=== PATIENT | male | born 1965 | race Caucasian/White ===

== ENCOUNTER 2019-06-18 06:05 | Observation (INO) ==
--- NOTE | 2019-06-18 06:45 | PROVIDER DOCUMENTATION ---
HPI-General Adult - General Chief Complaint: Nausea/Vomiting Stated Complaint: dizzy, nausea Time Seen by Provider: 06/18/19 06:16 Source: patient Allergies/Adverse Reactions: Patient Allergies Allergy/AdvReac Type Severity Reaction Status Date / Time No Known Allergies Allergy Verified 09/15/17 12:58 Home Medications: Home Medication List Medication Instructions Recorded Confirmed Last Taken Type D-Methorphan/P-Epd/Bpm [Bromfed Dm 5 ml PO Q4H PRN #120 ml 12/09/18 Unknown Rx Liquid] Prednisone 20 mg PO DIRECTED #18 tab 12/09/18 Unknown Rx - History of Present Illness -Gen Adult Nature of Presenting Problems: Presents to the with complaints of dizziness and nausea. Patient states that he woke up this morning with some dizziness and nausea and abdominal pain. He went to work at [employer] and stated that he kept having to sit down to keep himself from falling. He states that this happened many times. He states that he was very wobbly when he tried to walk. He states that he thinks he may have lost consciousness a few times. His is at bedside and states that he has a history of gastritis and when this has happened to him in the past he was drinking too many cokes and was dehydrated. He states he feels like his abdomen is cramping. He has not tried anything at home. He denies any fevers or chills. Review of Systems - Adult - REVIEW OF SYSTEMS - ADULT ROS:: vague historian Constitutional: reports: see HPI Eyes: reports: no symptoms reported Ears, Nose, Mouth & Throat: reports: no symptoms reported Cardiovascular: reports: no symptoms reported Respiratory: reports: no symptoms reported Gastrointestinal: reports: abdominal pain, nausea, vomiting Genitourinary: reports: no symptoms reported Musculoskeletal: reports: no symptoms reported Integumentary: reports: no symptoms reported Neurological: reports: see HPI, dizziness/vertigo Psychiatric: reports: no symptoms reported Endocrine: reports: no symptoms reported Hematologic/Lymphatic: reports: no symptoms reported Allergic/Immunologic: reports: no symptoms reported All Other Systems: Reviewed and Negative Past History - Adult - PAST MEDICAL HISTORY-ADULT Review of Records: reports: Old Records Reviewed Major Childhood Illnesses: reports: denies history Cardiovascular: reports: denies history Respiratory: reports: denies history Gastrointestinal: reports: GERD Obstetrical/Gynecological: reports: denies history Genitourinary: reports: denies history Musculoskeletal: reports: denies history Neurological: reports: denies history Psychiatric: reports: denies history Endocrine/Immune: reports: denies history Other Conditions: reports: denies history - PRIOR SURGERIES/PROCEDURES Surgical/Procedure History: reports: hernia repair, bowel surgery (hernia repair) - PRIOR HOSPITALIZATIONS Prior Hospitalizations: reports: none, for other non-related - IMMUNIZATION STATUS Childhood Immunizations: UTD, See Nurse Assessment Flu Vaccine: See Nurse Assessment - FAMILY HISTORY Family History: CAD over 55 yo, lung disease Physical Exam-General - PHYSICAL EXAM-ADULT Initial Vital Signs Reviewed: Yes - CONSTITUTIONAL General Appearance: appears well, alert, no apparent distress, other (fatigued) - EYES Eyes: PERRL/EOMI - HEAD, EARS, NOSE, MOUTH & THROAT HENMT: normocephalic/atraumatic - NECK Neck: non-tender, full range of motion, supple, normal inspection - RESPIRATORY Respiratory: chest non-tender, lungs clear, normal breath sounds, no respiratory distress, no accessory muscle use - CARDIOVASCULAR Cardiovascular: normal peripheral pulses, no murmur, bradycardia - GASTROINTESTINAL (ABDOMEN) Abdominal Exam: normal bowel sounds, soft, tenderness (RLQ) - MUSCULOSKELETAL Back Exam: normal inspection Extremity: normal range of motion, non-tender, normal gait - SKIN Integumentary: normal color, warm/dry - NEUROLOGIC Neurologic: grossly normal, no motor/sensory deficits - PSYCHIATRIC Psych/Mental Status: normal mood/affect, oriented x 3 Progress - PLAN OF CARE/RESULTS Progress/Plan/Lab Results: Vital Signs - 8 hr 06/18/19 06:15 Temperature 97.6 F Pulse Rate 56 L Respiratory Rate 18 Blood Pressure 136/89 O2 Sat by Pulse Oximetry 97 Result Diagrams: 06/18/19 06:30 06/18/19 06:30 - REASSESSMENT Reassessment #1 Time Reassessed: 09:15 Status: improving (CT scan suggestive of interval development of infarct from 2015. d/w pt. Will admit for further w/u. Pt agreeable with the plan.) - EKG 2 Time of EKG reading by physician:: 06:27 EKG Read and Signed by:: My Mejia EKG Interpretation (*Must complete 3 of following elements*): Normal Rate: 52 Rhythm: Bradycardia [place]: normal QRS: normal [place] Interval: normal ST Wave: normal Prior EKG Comparison: unchanged from prior (2017) - CONSULTS/PCP/HOSPITALIST Notification #1 *Consult/PCP/Hospitalist*: d/w Dr Dominguez Time Discussed: 09:25 Consult Disposition: Admit (for observation.) - CHANGE OF SHIFT REPORT (ED Provider) 1 Report Given and Care Transferred to:: Dr Crump Time of Transfer: 07:00 Items Pending: Labs, CT/MRI Results Departure - Departure Date of Disposition Decision: 06/18/19 Time of Disposition Decision: 09:27 DIAGNOSIS: Dizziness, Abnormal CT of the head Disposition: ADMITTED INPATIENT Certified Medical Emergency: Emergent Condition: Stable Referrals and Follow-Ups: None,PCP [Primary Care Provider] - - Critical Care Note This patient required my direct & personal management of CC.: No Attestation - Physician/ BRITNEY Attestation Patient care was provided by Advanced Practice Provider:: No The physician spent face to face time with patient:: Yes Advanced Practice Provider documentation review:: Supervising physician onsite and consulted in the evaluation and care of this patient. The physician did have a face to face encounter with the patient.
[2019-06-18] MEDS ORDERED: TORADOL IV ONE (06:48)
[2019-06-18] MEDS ORDERED: NS 1,000 ML IV ONE (06:48)
[2019-06-18] MEDS ORDERED: ZOFRAN IV ONE (06:48)
[2019-06-18 07:03] LABS: BASO# 0.04 X1000 (0.0-0.2); BASO% 0.6 % (0.0-0.8); EOS# 0.21 X1000 (0.0-0.7); EOS% 3.3 % (0.0-10.0); HEMATOCRIT 40.6 % (42.0-52.0); HEMOGLOBIN 13.5 g/dL (14.0-18.0); LYMPH# 1.83 X1000 (1.2-3.4); LYMPH% 28.6 % (20.5-51.1); MCHC 33.3 g/dL (33-37); MCV 93.3 FL (81-99); MONO# 0.44 X1000 (0.11-0.59); MONO% 6.9 % (1.7-9.3); MPV 11.2 FL (7.4-10.4); NEUT# 3.88 X1000 (1.4-6.5); NEUT% 60.6 % (42.2-75.2); PLT 171 X1000 (130-400); RBC 4.35 XMIL (4.7-6.1); RDW 12.7 % (11.5-14.5)
--- NOTE | 2019-06-18 07:21 | EKG Report ---
Test Performed on : 06/18/2019 06:23:59 AM Test Reason : ER Blood Pressure : / mmHG Vent. Rate : 052 BPM Atrial Rate : 052 BPM P-R Int : 136 ms QRS Dur : 076 ms QT Int : 384 ms P-R-T Axes : 062 066 064 degrees QTc Int : 357 ms Sinus bradycardia. Possible Left atrial enlargement Borderline ECG When compared with ECG of 15-SEP-2017 14:44, QT has shortened Unconfirmed Result
[2019-06-18 07:40] LABS: AGAP 11; ALBUMIN 4.6 g/dL (3.5-5.0); ALKALINE PHOSPHATASE 113 U/L (32-122); BUN 15 mg/dL (8-22); CALCIUM 9.3 mg/dL (8.8-10.2); CHLORIDE 103 mmol/L (98-107); COSMO 275; CREATININE 0.8 mg/dL (0.7-1.2); ESTIMATED GFR > 60; GLUCOSE 107 mg/dL (70-104); GOT 24 U/L (10-34); GPT 20 U/L (10-44); LIPASE 9 U/L (13-60); POTASSIUM 4.3 mmol/L (3.5-5.1); SODIUM 137 mmol/L (136-145); TCO2 23 mmol/L (25-35); TOTAL PROTEIN 6.8 g/dL (6.3-8.3)
[2019-06-18 07:41] LABS: BILIRUBIN URINE NEGATIVE (NEGATIVE); BLOOD URINE NEGATIVE (NEGATIVE); CLARITY CLEAR (CLEAR); COLOR YELLOW; GLUCOSE URINE NEGATIVE (NEGATIVE); KETONE URINE NEGATIVE (NEGATIVE); LEUKOCYTES URINE NEGATIVE (NEGATIVE); NITRITE URINE NEGATIVE (NEGATIVE); PROTEIN URINE NEGATIVE (NEGATIVE); UR AMPHETAMINES QUAL NONE DETECTED (NONE DETECT); UR BARBITUATES QUAL NONE DETECTED (NONE DETECT); UR BENZODIAZEPIN QUAL NONE DETECTED (NONE DETECT); UR CANNABINOIDS QUAL NONE DETECTED (NONE DETECT); UR COCAINE QUAL NONE DETECTED (NONE DETECT); UR METHADONE QUAL NONE DETECTED (NONE DETECT); UR METHAMPHETAMINE QUAL NONE DETECTED (NONE DETECT); UR OPIATES QUAL NONE DETECTED (NONE DETECT); UR OXYCODONE QUAL NONE DETECTED (NONE DETECT); UR PCP QUAL NONE DETECTED (NONE DETECT); UR PROPOXYPHENE QUAL NONE DETECTED (NONE DETECT); UR TCA QUAL NONE DETECTED (NONE DETECT); UROBILINOGEN URINE NORMAL
[2019-06-18 07:44] LABS: URINE BACTERIA 1+ /HFP; URINE EPITHELIAL CELLS <10 /HPF (<10); URINE SOURCE CLEAN CATCH
--- NOTE | 2019-06-18 08:42 | Diag Imaging Result Doc PS360 ---
EXAM: CT HEAD W/O CONTRAST - 06/18/2019 HISTORY: dizziness, syncope TECHNIQUE: CT head without contrast COMPARISON: 09/13/2015 FINDINGS: There is encephalomalacia at the left cerebellar hemisphere, most prominent posteriorly and inferiorly, which is compatible with interval infarct. The age of the left cerebellar infarct is otherwise nonspecific. There is no other infarct identified, although acute infarcts may not be immediately visible. There is no evidence of intracranial hemorrhage, mass effect, midline shift, or hydrocephalus. There is no evidence of skull fracture. There is some paranasal sinus disease noted at ethmoid air cells. IMPRESSION: Infarct at left cerebellum which has developed since 09/13/2015, but otherwise is of nonspecific age. Correlation with clinical history is recommended. If any further imaging evaluation is desired, MRI could be considered. No hemorrhage or mass effect. This exam was performed using automated exposure control, adjustment of mA or kV according to patient size, and/or use of iterative reconstruction technique. Electronically signed by Jerman Irizarry 06/18/2019 8:39 AM
--- NOTE | 2019-06-18 08:50 | Diag Imaging Result Doc PS360 ---
EXAM: CT ABD/PELVIS W/IV CONT ONLY - 06/18/2019 HISTORY: RLQ abd pain, nausea TECHNIQUE: CT abdomen/pelvis with intravenous contrast. No oral contrast administered per request of the referring provider. COMPARISON: None. FINDINGS: There are no substantial abnormalities of the liver, spleen, adrenal glands, or pancreas identified. There are no calcified gallstones or pericholecystic inflammation identified. The bilateral kidneys enhance homogeneously. There is no hydronephrosis. There are nonspecific small retroperitoneal and mesenteric lymph nodes. There are no substantially enlarged lymph nodes identified. There is no evidence of bowel obstruction. The appendix is upper normal in size and shows no discrete inflammation. There is mild colonic diverticulosis. There is no evidence of diverticulitis. There is no free air, free fluid, or abscess identified. IMPRESSION: No visible acute abnormality. No bowel obstruction. No discrete appendicitis. Mild colonic diverticulosis. No evidence of diverticulitis. No abscess. No free air. This exam was performed using automated exposure control, adjustment of mA or kV according to patient size, and/or use of iterative reconstruction technique. Electronically signed by Jerman Irizarry 06/18/2019 8:48 AM
[2019-06-18 11:36] LABS: CHOLESTEROL 169 mg/dL (0-200); HDL 47 mg/dL (35-55); LDL 110 mg/dL; TRIGLYCERIDES 60 mg/dL (39-160); VLDL 12 mg/dL
--- NOTE | 2019-06-18 12:49 | Diag Imaging Result Doc PS360 ---
EXAM: MRI BRAIN W/WO CONTRAST 06/18/2019 HISTORY: r/o cva TECHNIQUE: T1 sagittal and axial, post gadolinium T1 axial with coronal reformation, axial T2, FLAIR, DWI and coronal gradient echo. COMMENT: There are no previous MRI studies available for comparison. There is no evidence of restricted diffusion. There is encephalomalacia in the inferior medial portion of the left cerebellar hemisphere which may be due to a previous infarction. There is some motion artifact. There are patchy punctate areas of T2 weighted signal intensity particularly around the frontal horns bilaterally. There is no evidence of bleed or abnormal extra-axial fluid collection and no mass effect is present. No evidence of abnormal gadolinium enhancement is present. IMPRESSION: Chronic ischemic changes including what appears to be an old left posterior inferior cerebellar artery infarct. No evidence of acute disease. Electronically signed by Vadim Sandoval 06/18/2019 12:46 PM
--- NOTE | 2019-06-18 14:08 | Extremity Venous Study ---
EXAM: Carotid Ultrasound - 06/18/2019 HISTORY: dizziness, LE weakness, TIA v CVA TECHNIQUE: Carotid flow studies COMPARISON: None. FINDINGS: There is no substantial atherosclerotic plaquing identified in the right carotid system. Maximum systolic velocity right internal carotid is 76 cm/s, and maximum diastolic velocity is 32 cm/s. The right internal to common carotid systolic velocity ratio is 0.94. The flow velocities and ratio are consistent with 0-39% stenosis at the right internal carotid. The right vertebral arteries antegrade flow. There is no substantial atherosclerotic plaquing identified in the left carotid system. Maximum systolic velocity in the left internal carotid is 59 cm/s, and maximum diastolic velocity is 24 cm/s. The left internal to common carotid systolic velocity ratio is 0.63. The flow velocities and ratio are consistent with 0-39% stenosis at left internal carotid. The left vertebral demonstrates an. IMPRESSION: 0-39% stenosis at right internal carotid. 0-39% stenosis at left internal carotid. Electronically signed by Jerman Irizarry 06/18/2019 2:06 PM
--- NOTE | 2019-06-18 16:39 | ECHO REPORT ---
ORDER DATE: 06/18/2019 ECHOCARDIOGRAPHIC MEASUREMENTS: 1. Interventricular septum 0.9. 2. Left ventricular posterior wall 0.9. 3. Diastolic diameter 4.9. 4. Aorta 3.5 cm. 5. Left atrium 3.6 cm. SUMMARY: 1. Aortic valve leaflets are trileaflet. 2. Pulmonic valve is normal. There is trace pulmonary regurgitation. 3. Tricuspid valve was normal. 4. Mitral valve was normal. There is mild tricuspid regurgitation. Peak velocity across the tricuspid valve was 2.7 m/sec. 5. Pulmonary artery systolic pressure of 35 to 40 mmHg. There is mild mitral regurgitation. Peak velocity across the aortic valve less than 2 m/sec. By Doppler studies, there is no aortic stenosis or regurgitation. 6. Normal left ventricular cavity size. Estimated ejection fraction of 65%. 7. There is no pericardial effusion or obvious intracardiac mass or thrombus seen. cc: MD Blank Aleman CRNP
--- NOTE | 2019-06-18 19:55 | HISTORY AND PHYSICAL ---
CHIEF COMPLAINT: Is dizzy, nausea. HISTORY OF PRESENT ILLNESS: This is a 54-year-old gentleman who presented to the emergency room from his work at [employer]. The patient stated that he woke up this morning nausea and abdominal pain and dizziness.He reported episodes of "being very wobbly when I walk, its like riding a roller coaster and everything is spinning around me." He reported holding on to furniture as well as lean on the wall to walk due to the spinning. He reported sequence of symptoms as nausea and abdominal pain followed by dizziness and weakness. He denied any falling to the ground or any injury. PAST MEDICAL HISTORY: Gastroesophageal reflux disease, gastritis, hypokalemia. PAST SURGICAL HISTORY: Hernia repair and repair of the tendon in his right hand. SOCIAL HISTORY: Smokes about half pack a day. Denies alcohol or illicit drug use. ALLERGIES: No known drug allergies. HOME MEDICATIONS: A list will be obtained by the nursing staff and once verified will review restart as appropriate. REVIEW OF SYSTEMS: Discussed with patient with pertinent positives stated in the HPI. He denied any syncope, any vomiting, any black or bloody vomitus or stools, any diarrhea, constipation, any shortness of breath, cough, fever, chills, chest pain, palpitations, hematuria, dysuria, frequency, urgency. PHYSICAL EXAMINATION: GENERAL: This is a 54-year-old gentleman who is sitting up in the bed in the emergency room in no distress. VITAL SIGNS: Blood pressure is 138/88 with heart rate of 63, respirations 18, temperature 98.2 degrees oral with room air saturations 97-99%. Orthostatic vital signs lying blood pressure is 123/87 with heart rate of 52, sitting blood pressure 126/89 with heart rate of 70, standing blood pressure 128/90 with a heart rate of 81. Eyes, pupils are equal, round, react to light. EOMs are intact. Sclerae are anicteric. Head is normocephalic, atraumatic. Mucous membranes are moist. Neck is supple. Trachea midline. No JVD. CARDIOVASCULAR: Regular rate and rhythm. S1 and S2 appreciated. His calves are nontender bilateral, peripheral pulses palpable x4 extremities. PULMONARY: Breath sounds are clear with no increased work of breathing noted. Chest rises and falls symmetric respiration. Chest wall is nontender to palpation. GASTROINTESTINAL: Abdomen soft, nontender, nondistended. Bowel sounds in all 4 quadrants. : He has no CVA or suprapubic tenderness. SKIN: Is warm and dry. NEUROLOGIC: Forehead is spared. He has no facial droop. Equal nasal flaring. No tongue or uvula deviation. Speech is clear. Equal shoulder shrug. He has no plantar drift. 5/5 muscle strength x4 extremities. [employer] are equal and strong. [id number] bilateral 5/5. Heel, knee to duff 5/5 bilateral. LABS: WBC is 6.4 with hemoglobin 13.5, hematocrit 40.6 and platelets of 171,000. Sodium 137, potassium 4.3, BUN 15, creatinine 0.8 with a glucose of 107. Troponin is negative. Urinalysis is essentially negative. Urine drug screen reveals none detected. CT of the abdomen and pelvis reveals no acute abnormality, no bowel obstruction, no discrete appendicitis. Mild colonic diverticulosis, no evidence of diverticulitis, no abscess, no free air. CT of the head reveals infarct at the left cerebellum which has developed since 2014, otherwise is of nonspecific age, if further imaging evaluation is desired MRI could be considered. No hemorrhage or mass effect. ASSESSMENT AND PLAN: 1. Dizziness. 2. 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 3. Gastroesophageal reflux disease. 4. Nausea. 5. History of gastritis. 6. Abdominal pain. PLAN: The patient will be admitted to the medical-surgical floor. He will be placed on telemetry. MRI of the brain with and without as well as a bilateral carotid Doppler study and echocardiogram. neuro checks, consult physical therapy Prilosec 40 mg daily. CBC and BMP in the morning. Plan was discussed with Dr. Dominguez. Further treatments pending hospital course. Dictated by FELISHA Hogue for Maikol Dominguez MD cc: FELISHA Hogue MD [facility]
[2019-06-18] MEDS: ZOFRAN IV PRN (19:56)
[2019-06-18] MEDS ORDERED: NICODERM PATCH TD PRN (23:09)
[2019-06-18] MEDS: LIPITOR PO SCH (23:54)
[2019-06-18] MEDS: NS 1,000 ML IV SCH (23:55)
[2019-06-19] MEDS: PRILOSEC PO SCH (06:29)
[2019-06-19] MEDS: LOVENOX SUBQ SCH (06:29)
[2019-06-19 07:03] LABS: HEMATOCRIT 42.6 % (42.0-52.0); HEMOGLOBIN 14.1 g/dL (14.0-18.0); MCHC 33.1 g/dL (33-37); MCV 93.6 FL (81-99); RBC 4.55 XMIL (4.7-6.1); RDW 12.8 % (11.5-14.5); WBC 4.9 X1000 (4.8-10.8)
[2019-06-19 07:19] LABS: AGAP 9; CHLORIDE 105 mmol/L (98-107); POTASSIUM 4.4 mmol/L (3.5-5.1); SODIUM 137 mmol/L (136-145); TCO2 23 mmol/L (25-35)
[2019-06-19 07:20] LABS: BUN 11 mg/dL (8-22); CALCIUM 9.1 mg/dL (8.8-10.2); COSMO 273; CREATININE 0.8 mg/dL (0.7-1.2); ESTIMATED GFR > 60; GLUCOSE 100 mg/dL (70-104)
[2019-06-19 07:21] LABS: CHOLESTEROL 173 mg/dL (0-200); HDL 44 mg/dL (35-55); LDL 108 mg/dL; TRIGLYCERIDES 106 mg/dL (39-160); VLDL 21 mg/dL
--- NOTE | 2019-06-19 07:38 | PROGRESS NOTE ---
DATE: 06/19/2019 SUBJECTIVE: Patient has no major complaints. He came in with acute dizziness. No previous history of stroke but he has had acute dizziness issues. His neurological exam was nonfocal. Cranial nerves 2-12 were intact. No pronator drift and no facial asymmetry. The patient will be placed in observation for workup of stroke as he has MRI evidence of cerebellar encephalomalacia. Placed on aspirin. Carotid echo, CT angiogram, and we will continue to monitor. This is a [id number] encounter note with Blank Juárez. cc: Maikol Dominguze MD
--- NOTE | 2019-06-19 08:40 | Diag Imaging Result Doc PS360 ---
EXAM: CT ANGIOGRAM HEAD HISTORY: CVA TECHNIQUE: CT angiogram head with contrast. MIP images obtained. COMPARISON: None. FINDINGS: Normal flow in each distal internal carotid artery. Normal filling of each anterior and middle cerebral artery. No stenosis. No aneurysm. Normal flow in the basilar artery. Normal filling of each posterior cerebral artery. No parenchymal hemorrhage. No epidural or subdural hematoma. No subarachnoid hemorrhage. No mass or midline shift. Old left cerebellar infarct. IMPRESSION: No occlusion, stenosis, or aneurysm identified. This exam was performed using automated exposure control, adjustment of mA or kV according to patient size, and/or use of iterative reconstruction technique. Electronically signed by Alexander Spencer 06/19/2019 8:37 AM
[2019-06-19] MEDS: NS 1,000 ML IV SCH ×2 (10:29→21:00)
[2019-06-19] MEDS: ASPIRIN EC PO SCH (10:30)
[2019-06-19] MEDS: ZOFRAN IV PRN (13:21)
--- NOTE | 2019-06-19 19:48 | PROGRESS NOTE ---
DATE: 06/19/2019 SUBJECTIVE: Patient notes that he is feeling a lot better. He is still having some weakness. He is excited to get physical therapy again today. He does want to go home. His daughter notes that he is a little too weak at the moment. PHYSICAL EXAMINATION: Vital Signs: Temperature 97.8 degrees, pulse 57, respiratory rate 18, BP 110/75. General: Patient is awake, alert. He is very pleasant. He is alert and oriented. HEENT: Normocephalic. Neck: Supple. Cardiovascular: Regular rate. Chest: Clear. Abdomen: Soft. Extremities: Moves all extremities, although with generalized weakness. He has no focal weakness. ASSESSMENT: 1. Dizziness, appears to be improving. 2. Reflux. 3. Nausea. 4. Gastritis. 5. Left cerebellar infarct, that appears chronic in nature. PLAN: His MRI, carotid, and CT angiogram are reported as negative. We are going to continue physical therapy. Hopefully, if he gets stronger, he can discharge home today; otherwise, hopefully tomorrow. We will continue to follow. cc: Dany Cortes MD
[2019-06-19] MEDS: LIPITOR PO SCH (21:00)
[2019-06-20 05:07] VITALS: BP 119/70
[2019-06-20] MEDS: LOVENOX SUBQ SCH (06:08)
[2019-06-20] MEDS: PRILOSEC PO SCH (06:08)
[2019-06-20] MEDS: NS 1,000 ML IV SCH (06:08)
[2019-06-20] MEDS: ASPIRIN EC PO SCH (07:59)
--- NOTE | 2019-06-21 02:18 | DISCHARGE SUMMARY ---
ADMISSION DATE: 06/18/2019 DISCHARGE DATE: 06/20/2019 DIAGNOSES: 1. Dizziness, resolved. 2. Gastroesophageal reflux disease. 3. Left cerebellar infarct that appears to be chronic in nature. 4. Nausea, resolved. 5. Abdominal pain, resolved. 6. History of gastritis. DIAGNOSTICS: 1. 06/18/2019 CT of the abdomen and pelvis with IV contrast revealed no visible acute abnormality. No obstruction. No discrete appendicitis. Mild colonic diverticulosis with no evidence of diverticulitis. No abscess. No free air. 2. CT of the head without contrast revealed infarct at the left cerebellum which has developed since 09/13/2015, but otherwise is of nonspecific age. No hemorrhage or mass effect. 3. MRI of the brain with and without contrast revealed chronic ischemic changes including what appears to be an old left posterior inferior cerebellar artery infarct. No evidence of acute disease. 4. Echocardiogram revealed normal left ventricular cavity size with an estimated ejection fraction of 65%. No pericardial effusion or obvious intracardiac mass or thrombus seen. 5. CTA of the head revealed no occlusion, stenosis or aneurysm identified. 6. Bilateral carotid Doppler study 0 to 39% stenosis at the right and left internal carotid. HOSPITAL COURSE: Mr. Sun presented to the emergency room after having an episode of dizziness as well as nausea and lower extremity weakness. He describes sequence of symptoms as nausea followed by abdominal pain followed by dizziness and weakness. He denied any true syncopal episodes or any injury. He was found to have a left cerebellar infarct which has developed since 2014. MRI revealed no acute processes. Dizziness resolved. His nausea and abdominal pain resolved. He tolerated a healthy heart diet 100%. He was evaluated by Physical Therapy. He ambulated 400 feet with reciprocal gait pattern, upright posture and good doris ambulating. They did not recommend any inpatient rehab nor home physical therapy. DISCHARGE VITAL SIGNS: Blood pressure is 119/70 with a heart rate of 58, respirations 18, temperature is 97.4 degrees with room air saturations 97%. DISCHARGE PHYSICAL EXAMINATION: Cardiovascular: Regular rate and rhythm. S1 and S2 appreciated. He has no lower extremity edema. Calves nontender bilateral with peripheral pulses palpable x4 extremities. Pulmonary: Breath sounds are clear with no increased work of breathing noted. Gastrointestinal: Abdomen is soft, nontender, nondistended with bowel sounds in all 4 quadrants. Genitourinary: No CVA or suprapubic tenderness. Skin: Warm and dry. Neurologic: Forehead is spared. He has no facial droop. Equal nasal flaring. No tongue or uvula deviation. Speech is clear. Equal shoulder shrug. No plantar drift. 5/5 muscle strength x4 extremities. Finger-to- nose bilateral is 3/3. Heel, knee to duff is bilateral 3/3. DISCHARGE MEDICATIONS: Lipitor 40 mg p.o. at bedtime, NicoDerm patch 21 mg daily. FOLLOWUP: Dr. Crump or his primary care physician in the next 7 to 10 days. He has been instructed to call to be seen sooner or return to the ER for recurrence of any symptoms, any syncope, dizziness, shortness of breath, cough, temperature greater than 101, any chills, any chest pain, palpitations, any nausea, vomiting, diarrhea, constipation, black or bloody vomitus or stools, hematuria, dysuria, frequency, urgency, any change in his gait, any change in muscle strength or movement of extremities, change in vision, hearing, speech, difficulty chewing or swallowing, or for any questions or concerns that he may have. He is being discharged home in stable condition with his daughter and his . TIME: This is a greater than 30 minute discharge. NOTE: The patient has been given a work excuse to stay off of work for the remainder of this week and to return Tuesday, June 25, at full duty. Dictated by FELISHA Hogue for Dany Cortes MD cc: FELISHA Hogue MD
--- NOTE | 2019-06-21 15:38 | DISCHARGE SUMMARY ---
ADMISSION DATE: 06/18/2019 DISCHARGE DATE: 06/20/2019 Patient seen and examined by myself. Full note dictated and discussed with nurse practitioner. On discharge, patient is awake, alert. He is in no distress. He is ambulatory. Overall he has improved. He had a negative MRI, negative carotid, negative CT angiogram. We are going to discharge him home on aspirin and cholesterol medications. Discussed the importance of taking each as well as the importance of regular exercise and stopping smoking. He will follow up with his primary care. cc: Dany Cortes MD
== END 2019-06-20 08:47 | disposition home or self-care (01) ==
LOC: P.MEDSURG 06:05 → P.ED 06:05 → SUATTDRO 06:06 → P.MEDSURG 11:40
PROVIDERS: ATTEND Family Medicine